=== PATIENT | female | born 1945 | race Caucasian/White ===

== ENCOUNTER 2021-07-27 13:29 | Emergency (ER) | payer MEDICARE, OTHER, MEDICAID, SELFPAY ==
--- NOTE | ~2021-07-27 | XR_ITS ---
XR chest 2V DATE: 07/27/2021 15:27 INDICATION: Cough for 4 days. Diminished lung sounds, right upper lobe TECHNIQUE: PA and lateral views COMPARISON: None FINDINGS: There is bilateral hyperinflation suggesting COPD. There is aortic calcification. No hilar or mediastinal enlargement. No pulmonary infiltrate or consolidation, pulmonary vascular congestion or pleural effusion or pneumo thorax. Diffuse osteopenia. Moderately large hiatal hernia. Calcified gallstones are suggested on the lateral view. IMPRESSION: Bilateral hyperinflation, consistent with COPD No active cardiopulmonary disease Hiatal hernia Cholelithiasis Aortic atherosclerosis Reviewed, dictated and finalized at location A.
--- NOTE | 2021-07-27 13:34 | ED.URI ---
HPI - URI/Sore Throat General Chief Complaint: Upper Respiratory Infection Stated Complaint: Cough sore throat Time Seen by Provider: 07/27/21 13:48 Source: patient and RN notes reviewed Mode of arrival: ambulatory Limitations: no limitations History of Present Illness HPI Narrative: 75-year-old female presents concern for 4 to 5-day history of cough, sore throat. Reports dry cough, however it is not productive. She reports sore throat that she believes is related to her cough. She reports rhinorrhea. She denies fever, body aches, chills, sweats, nasal congestion. She denies any [id number] intervention. She denies known sick contacts MD elicited complaint: cough and sore throat Related Data Home Medications Medication Instructions Recorded Confirmed aspirin 81 mg tablet,delayed 81 mg PO DAILY 01/30/19 07/27/21 release (Adult Low Dose Aspirin) atorvastatin 40 mg tablet 40 mg PO DAILY 01/30/19 07/27/21 cholecalciferol (vitamin D3) 1,250 50,000 unit PO WEEKLY 01/30/19 07/27/21 mcg (50,000 unit) capsule clonidine HCl 0.1 mg tablet 0.1 mg PO DAILY 01/30/19 07/27/21 furosemide 40 mg tablet 40 mg PO BID 01/30/19 07/27/21 levothyroxine 25 mcg tablet 25 mcg PO DAILY 01/30/19 07/27/21 losartan 50 mg tablet 50 mg PO DAILY 01/30/19 07/27/21 metoprolol tartrate 50 mg tablet 50 mg PO Q12H 01/30/19 07/27/21 prednisone 50 mg tablet 50 mg PO BID 01/30/19 07/27/21 ranitidine HCl 150 mg tablet 150 mg PO DAILY 01/30/19 cetirizine 10 mg tablet mg 07/27/21 ezetimibe 10 mg tablet tablet 07/27/21 famotidine 40 mg tablet tablet 07/27/21 hydralazine 25 mg tablet tablet 07/27/21 isosorbide mononitrate 30 mg tablet PO 07/27/21 tablet,extended release 24 hr lorazepam 0.5 mg tablet mg 07/27/21 potassium chloride 10 mEq meq PO 07/27/21 tablet,extended release(part/cryst) potassium chloride 10 mEq tablet PO 07/27/21 tablet,extended release(part/cryst) primidone 50 mg tablet tablet 07/27/21 Allergies Allergy/AdvReac Type Severity Reaction Status Date / Time No Known Allergies Allergy Unverified 07/27/21 13:49 Review of Systems Review of Systems: CONSTITUTIONAL: Denies malaise, chills, sweats, or fever. EYES: Denies visual changes, redness, or discharge. ENT: Reports rhinorrhea, sore throat. Denies congestion, sinus pain, otalgia CARDIOVASCULAR: Denies chest pain, palpitations, or edema. RESPIRATORY: Reports cough. Denies dyspnea. GASTROINTESTINAL: Denies abdominal pain, nausea, vomiting, diarrhea SKIN: Denies rash or itching. MUSCULOSKELETAL: Denies myalgia. NEUROLOGIC: Denies headache. All systems reviewed & are unremarkable except as noted in HPI and below PMFSH Past Medical History Medical History (Updated 07/27/21 @ 14:37 by Jazmín Luo NP) Colon cancer HTN (hypertension) Renal disease Thyroid disease Surgical History Surgical History (Updated 01/30/19 @ 08:37 by Jeannei Sorenson [facility]) H/O: hysterectomy Family History Family History (Updated 01/30/19 @ 08:38 by Jeannie Sorenson [facility]) Mother Alzheimers disease Father Acute myocardial infarction Sibling Cancer Social History Social History Smoking status: Never smoker Alcohol intake: never Comments At time of signature, agree with nursing past medical, surgical, social and family history. There is no relevant family history pertinent to the presenting complaint Exam Narrative: GENERAL: Well-appearing, well-nourished, and in no acute distress. HEAD: Normocephalic EYES: PERRLA, conjunctivae clear ENT: Nares clear, clear discharge. Mucous membranes moist. TM pearly murdock with dull light reflex bilaterally; no tragal tenderness. Oropharynx not erythematous without lesions. Tonsils not enlarged and without exudate, no drooling, no hoarseness, no trismus, uvula midline. NECK: Supple. No lymphadenopathy CHEST: Clear to auscultation, breath sounds diminished on the right. No wheezing, rhonchi, rales, or stridor. No respiratory di
[2021-07-27 13:42] VITALS: BP 166/75; PULSE 76; RESP 16; TEMP 36.8; O2SAT 99
== END 2021-07-27 14:40 | disposition home or self-care (01) ==
PROVIDERS: Emergency Provider Nurse Practitioner; PCP Internal Medicine
DX: R05.9 Cough, unspecified (principal); Z20.822 Contact with and (suspected) exposure to COVID-19; I10 Essential (primary) hypertension; Z85.038 Personal history of other malignant neoplasm of large intestine; N28.9 Disorder of kidney and ureter, unspecified; E07.9 Disorder of thyroid, unspecified
CPT/HCPCS: 71046; 87426; 99213; C9803; G0463

== ENCOUNTER 2021-09-01 14:30 | Emergency (ER) | payer MEDICARE, OTHER, MEDICAID, SELFPAY ==
--- NOTE | 2021-09-01 14:34 | ED.EAR ---
HPI - Ear Problem General Chief complaint: Ear Stated complaint: Ear Pain Time Seen by Provider: 09/01/21 14:34 Source: patient and RN notes reviewed History of Present Illness HPI Narrative: Patient is 75-year-old female who presents the urgent care with complaints of left ear pain since last night. Patient has not taken anything [id number] for her symptoms. States that she is also had a mild runny nose. Denies any fevers, nausea, vomiting, shortness of breath or cough. Denies any ill contacts. No other acute complaints. No acute distress noted. Patient aware of the plan of care. Some parts of this dictation were generated by voice recognition software and may contain typographical and/or grammatical inaccuracies. Related Data Home Medications Medication Instructions Recorded Confirmed aspirin 81 mg tablet,delayed 81 mg PO DAILY 01/30/19 07/27/21 release (Adult Low Dose Aspirin) atorvastatin 40 mg tablet 40 mg PO DAILY 01/30/19 07/27/21 cholecalciferol (vitamin D3) 1,250 50,000 unit PO WEEKLY 01/30/19 07/27/21 mcg (50,000 unit) capsule clonidine HCl 0.1 mg tablet 0.1 mg PO DAILY 01/30/19 07/27/21 furosemide 40 mg tablet 40 mg PO BID 01/30/19 07/27/21 levothyroxine 25 mcg tablet 25 mcg PO DAILY 01/30/19 07/27/21 losartan 50 mg tablet 50 mg PO DAILY 01/30/19 07/27/21 metoprolol tartrate 50 mg tablet 50 mg PO Q12H 01/30/19 07/27/21 prednisone 50 mg tablet 50 mg PO BID 01/30/19 07/27/21 cetirizine 10 mg tablet mg 07/27/21 ezetimibe 10 mg tablet tablet 07/27/21 famotidine 40 mg tablet tablet 07/27/21 hydralazine 25 mg tablet tablet 07/27/21 isosorbide mononitrate 30 mg tablet PO 07/27/21 tablet,extended release 24 hr lorazepam 0.5 mg tablet mg 07/27/21 potassium chloride 10 mEq tablet PO 07/27/21 tablet,extended release(part/cryst) primidone 50 mg tablet tablet 07/27/21 Allergies Allergy/AdvReac Type Severity Reaction Status Date / Time No Known Allergies Allergy Verified 09/01/21 14:45 Review of Systems Review of Systems: CONSTITUTIONAL: Denies fever, chills, or sweats. EYES: Denies visual changes, redness, or discharge. ENT: Denies rhinorrhea, congestion, sore throat. Reports of left otalgia CARDIOVASCULAR: Denies chest pain, palpitations, or edema. RESPIRATORY: Denies cough or dyspnea. GASTROINTESTINAL: Denies abdominal pain, nausea, vomiting, or diarrhea. GENITOURINARY: Denies dysuria or hematuria. SKIN: Denies rash or itching. MUSCULOSKELETAL: Denies back pain, joint pain, or myalgia. NEUROLOGIC: Denies headache, numbness, or weakness. All other systems reviewed are negative, except as documented in HPI. [facility] Past Medical History Medical History (Updated 09/01/21 @ 14:53 by MILLIE ChackoP) Colon cancer HTN (hypertension) Renal disease Thyroid disease Surgical History Surgical History (Updated 01/30/19 @ 08:37 by Jeannie Sorenson [facility]) H/O: hysterectomy Family History Family History (Updated 01/30/19 @ 08:38 by Jeannie Sorenson [facility]) Mother Alzheimers disease Father Acute myocardial infarction Sibling Cancer Social History Social History Smoking status: Never smoker Alcohol intake: never Comments At the time of my signature, I reviewed and agree with the nursing past medical, surgical, social, and family history. There is no relevant family history pertinent to the patient complaint. Exam Narrative: GENERAL: This is a well-nourished, well-developed patient, in no apparent distress. HEAD: normocephalic, atraumatic. EYES: PERRL. Sclera clear/white. Vision is grossly intact. EARS: External ears normal, auditory canals clear and without drainage, TMs normal without perforation. Hearing grossly intact. NOSE: External nose normal with no obvious nasal discharge, nares without redness, no rhinorrhea. THROAT: Mucous membranes moist, posterior pharynx clear. Mild postnasal drainage NECK: Neck supple, non-tender without lymphadenopathy CARDIOVASCU
[2021-09-01 14:38] VITALS: BP 142/59; PULSE 86; RESP 16; TEMP 36.8; O2SAT 98
[2021-09-01 14:52] VITALS: BP 142/59; PULSE 86; RESP 16; TEMP 36.8; O2SAT 98
== END 2021-09-01 14:57 | disposition home or self-care (01) ==
PROVIDERS: Emergency Provider Nurse Practitioner Family; PCP Internal Medicine
DX: H92.02 Otalgia, left ear (principal); I10 Essential (primary) hypertension; Z85.038 Personal history of other malignant neoplasm of large intestine; Z79.82 Long term (current) use of aspirin; N28.9 Disorder of kidney and ureter, unspecified; E07.9 Disorder of thyroid, unspecified
CPT/HCPCS: 99211; G0463

== ENCOUNTER 2021-11-28 11:44 | Emergency (ER) | payer MEDICARE, OTHER, MEDICAID, SELFPAY ==
[2021-11-28 11:48] VITALS: BP 108/46; PULSE 74; RESP 20; TEMP 36.2; O2SAT 100
--- NOTE | 2021-11-28 11:53 | ED.SKABFB ---
HPI - Skin/Abscess/Foreign Bdy General Chief complaint: Skin/Abscess/Foreign Body Stated complaint: Cyst on mid back Time Seen by Provider: 11/28/21 12:00 Source: patient and RN notes reviewed Mode of arrival: ambulatory Limitations: dementia History of Present Illness HPI narrative: 76-year-old female presents concern for a cyst on her back. She reports been there about 2 weeks, has intermittently drained. She reports its tender. Denies body aches, chills, fever, sweats. MD complaint: other (Redness) Related Data Home Medications Medication Instructions Recorded Confirmed aspirin 81 mg tablet,delayed 81 mg PO DAILY 01/30/19 11/28/21 release (Adult Low Dose Aspirin) atorvastatin 40 mg tablet 80 mg PO DAILY 01/30/19 11/28/21 cholecalciferol (vitamin D3) 1,250 50,000 unit PO WEEKLY 01/30/19 11/28/21 mcg (50,000 unit) capsule clonidine HCl 0.1 mg tablet 0.1 mg PO DAILY 01/30/19 11/28/21 furosemide 40 mg tablet 40 mg PO BID 01/30/19 11/28/21 levothyroxine 25 mcg tablet 25 mcg PO DAILY 01/30/19 11/28/21 losartan 50 mg tablet 50 mg PO DAILY 01/30/19 11/28/21 metoprolol tartrate 50 mg tablet 50 mg PO Q12H 01/30/19 11/28/21 prednisone 50 mg tablet 5 mg PO DAILY 01/30/19 11/28/21 cetirizine 10 mg tablet 10 mg PO DAILY 07/27/21 11/28/21 ezetimibe 10 mg tablet 10 mg PO DAILY 07/27/21 11/28/21 famotidine 40 mg tablet 40 mg PO DAILY 07/27/21 11/28/21 hydralazine 25 mg tablet 25 mg PO TID 07/27/21 11/28/21 isosorbide mononitrate 30 mg 30 mg PO DAILY 07/27/21 11/28/21 tablet,extended release 24 hr lorazepam 0.5 mg tablet 0.5 mg PO DAILY 07/27/21 11/28/21 potassium chloride 10 mEq 10 meq PO DAILY 07/27/21 11/28/21 tablet,extended release(part/cryst) primidone 50 mg tablet 50 mg PO DAILY 07/27/21 11/28/21 Allergies Allergy/AdvReac Type Severity Reaction Status Date / Time No Known Allergies Allergy Verified 11/28/21 12:10 Review of Systems Review of Systems: CONSTITUTIONAL: Denies malaise, chills, sweats, or fever. RESPIRATORY: Denies cough or dyspnea. GASTROINTESTINAL: Denies abdominal pain, nausea, vomiting SKIN: Reports redness, swelling, tenderness to the mid back with intermittent amount the last 2 weeks. Denies numbness, pain beyond proportion MUSCULOSKELETAL: Denies joint pain or myalgia. NEUROLOGIC: Denies headache. All systems reviewed & are unremarkable except as noted in HPI and below PMFSH Past Medical History Medical History (Updated 11/28/21 @ 12:13 by Jazmín Luo NP) Colon cancer HTN (hypertension) Renal disease Thyroid disease Surgical History Surgical History (Updated 01/30/19 @ 08:37 by Jeannie Sorenson C[facility]) H/O: hysterectomy Family History Family History (Updated 01/30/19 @ 08:38 by Jeannie Sorenson C[facility]) Mother Alzheimers disease Father Acute myocardial infarction Sibling Cancer Social History Social History Smoking status: Never smoker Alcohol intake: never Comments At time of signature, agree with nursing past medical, surgical, social and family history. There is no relevant family history pertinent to the presenting complaint Exam Narrative: GENERAL: Well-appearing, well-nourished, and in no acute distress. HEAD: Normocephalic, atraumatic. EYES: PERRLA, conjunctivae clear ENT: Mucous membranes moist. NECK: Supple. No lymphadenopathy CHEST: Clear to auscultation. No respiratory distress. HEART: Regular rate and rhythm. SKIN: Warm, dry. 3cm x 3cm area of erythema and induration with central 2 cm x 2 cm raised fluctuant area of erythema and tenderness, nonerythematous area of induration surrounding the area approximately 1 cm in diameter. No vesicles, bullae, necrosis, ecchymosis, crepitus noted. NEURO: Alert and oriented x3. PSYCH: Normal mood and affect Course Course Emergency Course: Patient is aware of diagnosis, understands and agrees to treatment plan. Anticipatory guidance given. Patient agrees to follow-up as directed and is aware of kai
== END 2021-11-28 12:38 | disposition home or self-care (01) ==
PROVIDERS: Emergency Provider Nurse Practitioner; PCP Internal Medicine
DX: L02.212 Cutaneous abscess of back [any part, except buttock and flank] (principal); I10 Essential (primary) hypertension; Z85.038 Personal history of other malignant neoplasm of large intestine; Z79.82 Long term (current) use of aspirin
CPT/HCPCS: 10061; 87070; 87205; 99213; G0463

== ENCOUNTER 2021-11-29 08:56 | Emergency (ER) | payer MEDICARE, OTHER, MEDICAID, SELFPAY ==
--- NOTE | 2021-11-29 08:58 | ED.SKABFB ---
HPI - Skin/Abscess/Foreign Bdy General Chief complaint: Wound/Laceration Stated complaint: Wound Check Time Seen by Provider: 11/29/21 08:58 Source: patient and RN notes reviewed History of Present Illness HPI narrative: Patient is 76-year-old female who presents the urgent care needing a wound recheck. Patient was at our facility yesterday and had an abscess to the upper back drained and packed. Patient states that the amoxicillin they prescribed her made her feel weird and jittery and she is concerned about taking the antibiotics. Patient denies any fever, nausea or vomiting. Reports of minimal pain to the area. States that the packing does seem to be coming out and she was told to remove it on Saturday. No other acute complaints. No acute distress noted. Patient aware of the plan of care. Some parts of this dictation were generated by voice recognition software and may contain typographical and/or grammatical inaccuracies. Related Data Home Medications Medication Instructions Recorded Confirmed aspirin 81 mg tablet,delayed 81 mg PO DAILY 01/30/19 11/29/21 release (Adult Low Dose Aspirin) atorvastatin 40 mg tablet 80 mg PO DAILY 01/30/19 11/29/21 cholecalciferol (vitamin D3) 1,250 50,000 unit PO WEEKLY 01/30/19 11/29/21 mcg (50,000 unit) capsule clonidine HCl 0.1 mg tablet 0.1 mg PO DAILY 01/30/19 11/29/21 furosemide 40 mg tablet 40 mg PO BID 01/30/19 11/29/21 levothyroxine 25 mcg tablet 25 mcg PO DAILY 01/30/19 11/29/21 losartan 50 mg tablet 50 mg PO DAILY 01/30/19 11/29/21 metoprolol tartrate 50 mg tablet 50 mg PO Q12H 01/30/19 11/29/21 prednisone 50 mg tablet 5 mg PO DAILY 01/30/19 11/29/21 cetirizine 10 mg tablet 10 mg PO DAILY 07/27/21 11/29/21 ezetimibe 10 mg tablet 10 mg PO DAILY 07/27/21 11/29/21 famotidine 40 mg tablet 40 mg PO DAILY 07/27/21 11/29/21 hydralazine 25 mg tablet 25 mg PO TID 07/27/21 11/29/21 isosorbide mononitrate 30 mg 30 mg PO DAILY 07/27/21 11/29/21 tablet,extended release 24 hr lorazepam 0.5 mg tablet 0.5 mg PO DAILY 07/27/21 11/29/21 potassium chloride 10 mEq 10 meq PO DAILY 07/27/21 11/29/21 tablet,extended release(part/cryst) primidone 50 mg tablet 50 mg PO DAILY 07/27/21 11/29/21 Allergies Allergy/AdvReac Type Severity Reaction Status Date / Time amoxicillin AdvReac Anxiety Verified 11/29/21 09:18 Review of Systems Review of Systems: CONSTITUTIONAL: Denies fever, chills, or sweats. EYES: Denies visual changes, redness, or discharge. ENT: Denies rhinorrhea, congestion, sore throat, or otalgia. CARDIOVASCULAR: Denies chest pain, palpitations, or edema. RESPIRATORY: Denies cough or dyspnea. GASTROINTESTINAL: Denies abdominal pain, nausea, vomiting, or diarrhea. GENITOURINARY: Denies dysuria or hematuria. SKIN: Reports of a wound recheck to the upper back MUSCULOSKELETAL: Denies back pain, joint pain, or myalgia. NEUROLOGIC: Denies headache, numbness, or weakness. All other systems reviewed are negative, except as documented in HPI. [facility] Past Medical History Medical History (Updated 11/29/21 @ 09:24 by CASPER Chacko) Colon cancer HTN (hypertension) Renal disease Thyroid disease Surgical History Surgical History (Updated 01/30/19 @ 08:37 by Jeannie Sorenson [facility]) H/O: hysterectomy Family History Family History (Updated 01/30/19 @ 08:38 by Jeannie Sorenson CMA) Mother Alzheimers disease Father Acute myocardial infarction Sibling Cancer Social History Social History Smoking status: Never smoker Alcohol intake: never Comments At the time of my signature, I reviewed and agree with the nursing past medical, surgical, social, and family history. There is no relevant family history pertinent to the patient complaint. Exam Narrative: GENERAL: This is a well-nourished, well-developed patient, in no apparent distress. HEAD: normocephalic, atraumatic. EYES: PERRL. Sclera clear/white. Vision is grossly intact. EARS: External ears normal
[2021-11-29 09:03] VITALS: BP 109/49; PULSE 70; RESP 16; TEMP 36.4; O2SAT 99
== END 2021-11-29 09:33 | disposition home or self-care (01) ==
PROVIDERS: Emergency Provider Nurse Practitioner Family; PCP Internal Medicine
DX: L02.212 Cutaneous abscess of back [any part, except buttock and flank] (principal); I10 Essential (primary) hypertension; E07.9 Disorder of thyroid, unspecified; Z79.82 Long term (current) use of aspirin; Z85.038 Personal history of other malignant neoplasm of large intestine
CPT/HCPCS: 99213; G0463

== ENCOUNTER 2023-04-05 13:56 | Emergency (ER) | payer MEDICARE, OTHER, MEDICAID, SELFPAY ==
[2023-04-05 14:10] VITALS: BP 151/62; PULSE 64; RESP 16; TEMP 36.5; O2SAT 98
--- NOTE | 2023-04-05 14:59 | ED.URI ---
HPI - URI/Sore Throat General Chief Complaint: Upper Respiratory Infection Stated Complaint: sinus issues Time Seen by Provider: 04/05/23 14:59 Source: patient Mode of arrival: ambulatory Limitations: no limitations History of Present Illness HPI Narrative: 77 yo F presents with nasal congestion, PND, intermittent sore throat, cough for 5 days. Afebrile. has not taken any OTC meds to treat symptoms. States drainage green this AM. Requesting abd. No SOB or CP. All systems reviewed and negative except as noted above. Related Data Home Medications Medication Instructions Recorded Confirmed aspirin 81 mg tablet,delayed 81 mg PO DAILY 01/30/19 11/29/21 release (Adult Low Dose Aspirin) atorvastatin 40 mg tablet 80 mg PO DAILY 01/30/19 11/29/21 cholecalciferol (vitamin D3) 1,250 50,000 unit PO WEEKLY 01/30/19 11/29/21 mcg (50,000 unit) capsule clonidine HCl 0.1 mg tablet 0.1 mg PO DAILY 01/30/19 11/29/21 furosemide 40 mg tablet 40 mg PO BID 01/30/19 11/29/21 levothyroxine 25 mcg tablet 25 mcg PO DAILY 01/30/19 11/29/21 losartan 50 mg tablet 50 mg PO DAILY 01/30/19 11/29/21 metoprolol tartrate 50 mg tablet 50 mg PO Q12H 01/30/19 11/29/21 prednisone 50 mg tablet 5 mg PO DAILY 01/30/19 11/29/21 cetirizine 10 mg tablet 10 mg PO DAILY 07/27/21 11/29/21 ezetimibe 10 mg tablet 10 mg PO DAILY 07/27/21 11/29/21 famotidine 40 mg tablet 40 mg PO DAILY 07/27/21 11/29/21 hydralazine 25 mg tablet 25 mg PO TID 07/27/21 11/29/21 isosorbide mononitrate 30 mg 30 mg PO DAILY 07/27/21 11/29/21 tablet,extended release 24 hr lorazepam 0.5 mg tablet 0.5 mg PO DAILY 07/27/21 11/29/21 potassium chloride 10 mEq 10 meq PO DAILY 07/27/21 11/29/21 tablet,extended release(part/cryst) primidone 50 mg tablet 50 mg PO DAILY 07/27/21 11/29/21 Allergies Allergy/AdvReac Type Severity Reaction Status Date / Time amoxicillin AdvReac Anxiety Verified 11/29/21 09:18 Review of Systems Review of Systems: CONSTITUTIONAL: Denies fever, chills, or sweats. EYES: Denies visual changes, redness, or discharge. ENT: Reports rhinorrhea, congestion, sore throat. Denies otalgia. CARDIOVASCULAR: Denies chest pain, palpitations, or edema. RESPIRATORY: Reports cough. Denies dyspnea. GASTROINTESTINAL: Denies abdominal pain, nausea, vomiting, or diarrhea. GENITOURINARY: Denies dysuria or hematuria. SKIN: Denies rash or itching. MUSCULOSKELETAL: Denies back pain, joint pain, or myalgia. NEUROLOGIC: Denies headache, numbness, or weakness. PSYCHIATRIC: Denies anxiety or depression. All other systems reviewed are negative, except as documented in HPI. [facility] Past Medical History Medical History (Updated 04/05/23 @ 15:08 by Jenelle Garrett NP) Colon cancer HTN (hypertension) Renal disease Thyroid disease Surgical History Surgical History (Updated 01/30/19 @ 08:37 by Jeannie Sorenson, [facility]) H/O: hysterectomy Family History Family History (Updated 01/30/19 @ 08:38 by Jeannie Sorenson [facility]) Mother Alzheimers disease Father Acute myocardial infarction Sibling Cancer Social History Social History Smoking status: Never smoker Alcohol intake: never Comments At time of signature, agree with nursing past medical, surgical, social and family history. There is no relevant family history pertinent to the presenting complaint. Exam Narrative: GENERAL: This is a well-nourished, well-developed patient, in no apparent distress. HEAD: normocephalic, atraumatic. EYES: PERRL. Sclera clear/white. Vision is grossly intact. EARS: External ears normal, auditory canals clear and without drainage, TMs normal without perforation. Hearing grossly intact. NOSE: External nose normal with moderate nasal congestion, purulent nasal drainage with erythema and swelling to bilateral nares. THROAT: Mucous membranes moist, erythema with postnasal drainage. NECK: Neck supple, non-tender without lymphadenopathy, masses or thyromegaly. CARDIOVASCULAR: Regular rate a
== END 2023-04-05 15:16 | disposition home or self-care (01) ==
PROVIDERS: Emergency Provider Nurse Practitioner Family; PCP Internal Medicine
DX: J01.90 Acute sinusitis, unspecified (principal); I10 Essential (primary) hypertension; Z85.038 Personal history of other malignant neoplasm of large intestine; Z79.82 Long term (current) use of aspirin
CPT/HCPCS: 99213; G0463